=== PATIENT | male | born 1995 | race Caucasian/White ===

== ENCOUNTER → 2022-12-15 11:57 | Outpatient (CLI) | payer BC, SELFPAY ==
--- NOTE | ~2022-12-15 | XR_ITS ---
Supine views of the abdomen Clinical history: Abdominal pain Findings: Bowel gas pattern is nonspecific. Large amount of stool present. No evidence for obstructio n or free air. No abnormal mass lesion or calcification is seen. Degenerative disc disease noted at t he lower lumbar spine.. Impression: Prominent stool suggests constipation. Reviewed, dictated and finalized at location . [employer] SUPPORT REPRESENTATIVE Impression: Prominent stool suggests constipation.
== END ==
PROVIDERS: PCP Family Medicine; Visit Provider Physician Assistant
DX: R10.9 Unspecified abdominal pain (principal)
CPT/HCPCS: 74018